=== PATIENT | male | born 1980 | race Hispanic/Latino ===

== ENCOUNTER 2022-01-02 10:24 | Emergency (ER) | payer SELFPAY ==
[2022-01-02] MEDS ORDERED: Ketorolac Tromethamine 30 MG/ML VIAL ONE (12:03)
== END 2022-01-02 12:36 | disposition home or self-care (01) ==
LOC: ERS 10:24
DX: M25.531 Pain in right wrist (principal); M25.511 Pain in right shoulder
CPT/HCPCS: 96372; J1885